=== PATIENT | female | born 1935 | race Caucasian/White ===

== ENCOUNTER → 2016-06-05 | Outpatient (CLI) | payer OTHER ==
--- NOTE | 2016-06-05 12:40 | US ---
Venous Doppler Study of Right Upper Extremity Clinical Indications: Arm swelling. Technique: High-frequency transducer was used for imaging and Doppler study of the deep veins of the arm Pulsed Doppler and color Doppler were utilized, along with various maneuvers, to assess flow in the deep veins. Findings: The right internal jugular vein, innominate, subclavian, axillary, basilic, brachial, radi al, and ulnar veins are patent, competent, and compressible. The visualized cephalic vein is patent a nd competent. Contralateral left subclavian vein was imaged and is unremarkable. Impression: No evidence of venous thrombosis of the right upper extremity. Critical results relayed by Dr. Rodgers to Raisa London PA-C on June 05, 2016 at 1236 hours.
== END ==
LOC: FIMAGING 11:09
PROVIDERS: ATTEND Physician Assistant Surgical
DX: M79.89 Other specified soft tissue disorders (principal)